=== PATIENT | male | born 1950 | race Caucasian/White ===

== ENCOUNTER 2024-07-15 06:09 | Day surgery (SDC) | payer OTHER ==
[~2024-07-15] VITALS: Ht 177.8 cm; Wt 112.6 kg
[~2024-07-15 06:09] MED LIST: ALBU90OI6 INH; BACL10 PO; Balanced Salt Epinephrine Irrigation Solution 500 mL IR SCH; Cleocin HCl300 MG PO; GABA800 PO; LEVFLO500 PO; Lidocaine HCl/Pf 1% 5 ML VIAL XX SCH; Moxifloxacin HCL 0.5 MG/0.1 ML 0.4MLSYR LEFTEYE SCH; OXYC5; PHENYLEPHRINE\\TROPICAMIDE\\TETRACAINE OPHTHALMIC DILATING SOLN LEFTEYE PRN; Povidone-Iodine 450 DROP/30 ML Solution LEFTEYE SCH; Povidone-Iodine 450 DROP/30 ML Solution ONE; SOMA250 MG; Tetracaine HCl/Pf 0.5% Opth Soln 4 ml ONE
[2024-07-15] MEDS ORDERED: TRAZ50 PO (06:30)
[2024-07-15] MEDS ORDERED: ATOR40TA PO (06:31)
[2024-07-15] MEDS ORDERED: CARBIDOPA-LEVO1 EA18 PO (06:31)
[2024-07-15] MEDS ORDERED: CHLO25B PO (06:31)
[2024-07-15] MEDS ORDERED: Flonase 0.05% N16 GM (06:32)
[2024-07-15] MEDS ORDERED: Cyclobenzaprine5 MG PO (06:32)
[2024-07-15] MEDS ORDERED: IBUP800 PO (06:33)
[2024-07-15] MEDS ORDERED: Methylin ER10 MG (06:33)
--- NOTE | 2024-07-15 06:42 | NUR ---
07/15/24 0642 Viky Ramon CALL LIGHT WITHIN REACH. TETRACAINE IN LEFT EYE AT 0627 AND PLEDGETT IN AT 0628
[2024-07-15] MEDS ORDERED: Lidocaine HCl/Pf 1% 5 ML VIAL ONE (06:45)
[2024-07-15] MEDS ORDERED: Midazolam HCl 1MG / ML 2ML Vial ONE (06:58)
[2024-07-15] MEDS ORDERED: FentaNYL Citrate 50 MCG/ML 2 ML Injection ONE (07:26)
--- NOTE | 2024-07-15 07:43 | NUR ---
07/15/24 0743 Jacklyn Cadena PT ARRIVES TO SDU A&OX4, DENIES PAIN/NAUSEA. VSS, ON RA. NO VISIBLE SIGNS OF DISTRESS NOTED.
[2024-07-15 07:44] VITALS: BP 133/88
== END 2024-07-15 08:01 | disposition home or self-care (01) ==
LOC: ORSCSDS 06:09
PROVIDERS: Student in an Organized Health Care Education/Training Program
PROC: 08RK3JZ Replacement of Left Lens with Synthetic Substitute, Percutaneous Approach (ICD-10-PCS; principal; 2024-07-15 07:30)
DX: H25.813 Combined forms of age-related cataract, bilateral (principal); I10 Essential (primary) hypertension; G47.33 Obstructive sleep apnea (adult) (pediatric); H04.123 Dry eye syndrome of bilateral lacrimal glands; Z79.82 Long term (current) use of aspirin; Z79.899 Other long term (current) drug therapy
CPT/HCPCS: J2003; J2250; J3010; V2632

== ENCOUNTER 2024-07-29 07:52 | Day surgery (SDC) | payer OTHER ==
[~2024-07-29] VITALS: Ht 177.8 cm; Wt 111.8 kg
[~2024-07-29 07:52] MED LIST changes: +ALBU90OI INH; +ASPIRIN PO; +ATOR40TA PO; +CARBIDOPA-LEVO1 EA18 PO; +CHLO25B PO; +Cyclobenzaprine5 MG PO; +Diazepam 5 MG Tab PO PRN; +Diazepam 5 MG Tab PO SCH; +ERGO50000 PO; +FLUTICASONE-SA1 EAC9 INH; +Flonase 0.05% N16 GM; +IBUP800 PO; +MULTI-VITAMIN1 EAC2 PO; +Methylin ER10 MG; -Moxifloxacin HCL 0.5 MG/0.1 ML 0.4MLSYR LEFTEYE SCH; +Moxifloxacin HCL 0.5 MG/0.1 ML 0.4MLSYR RIGHTEYE SCH; +OMEP20ER PO; +Ondansetron 4 MG SoluTab MM PRN; -PHENYLEPHRINE\\TROPICAMIDE\\TETRACAINE OPHTHALMIC DILATING SOLN LEFTEYE PRN; +PHENYLEPHRINE\\TROPICAMIDE\\TETRACAINE OPHTHALMIC DILATING SOLN RIGHTEYE PRN; -Povidone-Iodine 450 DROP/30 ML Solution LEFTEYE SCH; +Povidone-Iodine 450 DROP/30 ML Solution RIGHTEYE SCH; +TRAZ50 PO; +Zoloft50 MG PO
[2024-07-29] MEDS ORDERED: Diazepam 10 MG Tab ONE (08:25)
--- NOTE | 2024-07-29 08:58 | NUR ---
07/29/24 0858 Haris Degroot TETRACAINE ADMINISTERED 0832, PLEDGET PLACED AT 0835. VALIUM ADMINISTERED AT 0832.
--- NOTE | 2024-07-29 09:32 | NUR ---
07/29/24 0932 Sandy Matthew [id number]
[2024-07-29 09:48] VITALS: BP 149/82
== END 2024-07-29 10:02 | disposition home or self-care (01) ==
LOC: ORSCSDS 07:52
PROVIDERS: Student in an Organized Health Care Education/Training Program
PROC: 08RJ3JZ Replacement of Right Lens with Synthetic Substitute, Percutaneous Approach (ICD-10-PCS; principal; 2024-07-29 09:30)
DX: H25.811 Combined forms of age-related cataract, right eye (principal); Z96.1 Presence of intraocular lens; J45.909 Unspecified asthma, uncomplicated; Z79.82 Long term (current) use of aspirin; Z79.899 Other long term (current) drug therapy
CPT/HCPCS: A9270; V2632